=== PATIENT | male | born 1980 | race Two or more races ===

== ENCOUNTER 2017-11-29 08:42 | Emergency (ER) | payer SELFPAY ==
[2017-11-29] MEDS: KETOROLAC 30 MG/ML INJ. IV (09:22)
== END 2017-11-29 10:53 | disposition home or self-care (01) ==
LOC: ER 08:42
DX: S52.501A Unspecified fracture of the lower end of right radius, initial encounter for closed fracture (principal); S52.611A Displaced fracture of right ulna styloid process, initial encounter for closed fracture; S50.311A Abrasion of right elbow, initial encounter; R07.81 Pleurodynia; W13.2XXA Fall from, out of or through roof, initial encounter; Y93.89 Activity, other specified; Y92.89 Other specified places as the place of occurrence of the external cause; Y99.8 Other external cause status
CPT/HCPCS: 71101; 73110; 96374; 99284; J1885

== ENCOUNTER → 2017-12-06 | Day surgery (SDC) | payer SELFPAY ==
[~2017-12-06] MED LIST: DEXAMETHASONE SOD PHOS 20 MG/5 ML VIAL.; LIDOCAINE 2% PF Vial for OR 5 ML VIAL.; MIDAZOLAM HCL/PF 2 MG/2 ML VIAL.; MORPHINE SULFATE 2 MG/ML DISP.SYRIN. IV; ONDANSETRON PF 4 MG/2 ML VIAL.; ONDANSETRON PF 4 MG/2 ML VIAL. IV; PROCHLORPERAZINE 10 MG/2 ML VIAL. IV; PROPOFOL 20 ML IV; fentaNYL PF VIAL 100 MCG/2 ML VIAL; fentaNYL PF VIAL 100 MCG/2 ML VIAL IV
[2017-12-06] MEDS: IV RINGERS,LACTATED 1000ML 1,000 ML IV (11:30)
[2017-12-06] MEDS: BUPIVACAINE 0.5% 50 ML VIAL. (12:33)
[2017-12-06] MEDS: LIDOCAINE 1% PF 30 ML VIAL. (12:33)
[2017-12-06] MEDS: fentaNYL PF VIAL 100 MCG/2 ML VIAL IV ×2 (14:30→14:42)
[2017-12-06] MEDS: oxyCODONE/APAP 5/325 1 TAB TABLET PO (16:00)
[2017-12-06] MEDS: LIDOCAINE 1% PF 2 ML VIAL. ID (16:30)
== END | disposition home or self-care (01) ==
LOC: SURG 10:36
DX: S52.551A Other extraarticular fracture of lower end of right radius, initial encounter for closed fracture (principal); Z87.891 Personal history of nicotine dependence; Z79.899 Other long term (current) drug therapy; W17.89XA Other fall from one level to another, initial encounter; Y93.89 Activity, other specified; Y92.89 Other specified places as the place of occurrence of the external cause; Y99.8 Other external cause status
CPT/HCPCS: 25607; 76000; C1713; J0690; J1100; J2001; J2250; J2405; J2704; J3010; J3490; J7120